=== PATIENT | female | born 1990 | race Caucasian/White ===

== ENCOUNTER 2018-04-20 04:00 | Observation (INO) | payer OTHER ==
--- NOTE | 2018-04-20 15:38 | PDGENHP ---
History and Physical History and Physical: Care: [facility] HPI: Claire Wei is a 28yo with IUP @37-0 weeks that presents to L&D with complaints of decreased movement since this morning. Upon arrival she states she is now feeling movement. She denies any contractions, LOF, VB. EDC: 05/11/18 which is based on LMP: 08/04/17 which is known and consistent with Ultrasound at 9 weeks. Her is complicated by: bicornuate uterus, prior c/s (breech), first trimester bleeding Review of Systems: Constitutional: Denies any fever, chills, or fatigue HEENT: denies any visual changes, difficulty swallowing, hearing loss Cardiovascular: Denies any chest pain, palpitations, leg swelling Respiratory: denies any cough, wheezing, or shortness of breathe GI: Denies any nausea, vomiting, diarrhea, constipation : denies any dysuria, urgency, frequency, vaginal bleeding Musculoskeletal: denies any muscle or bone pain Skin: denies any rashes Neuro: denies any headache, seizures, lightheadedness, dizziness, or loss of consciousness Psychiatric: denies any depression, anxiety, or SI/HI thoughts HISTORY: Previous OB history: primary c/s 2015 (breech, bicornuate uterus), EAB x1 (2013 ) Past medical history: HSV type 1 Past surgical history: right shoulder x2, oral surgery, c/s Social: Denies any alcohol, tobacco, or drug use. , Sanderson, son: October. Works in real estate Family history: PGM colon cancer, mother/MGM Factor V Medications: PNV, claritin, DHA Allergies (list reaction): NKDA LABS: Rh: A+ ABS: Neg Rubella: Immune HbsAg: NR HIV: NR VDRL: NR 1hr: 87 GC: Neg Chlamydia: Neg Pap: Normal GBS: negative BMI: (prepreg) 27 PHYSICAL EXAM: Constitutional: WN, A&Ox3 HEENT: normocephalic atraumatic, supple Skin: Warm, dry, intact Heart: RRR, no murmur Chest: CTA-B Abdomen: Soft, nontender, gravid SVE: deferred Extremities: no edema, negative homans sign Neuro: grossly normal Psych: normal affect assessment: FHT baseline 145 +accels, variable decel x1, moderate variability Contractions: toco none VINITA 10.6cm, Breech Assessment: 1) 27yo with IUP@ 37-0 wks 2) no evidence of labor 3) GBS negative 4) Cat 1 FHR tracing 5) VINITA 10.6cm 6) Breech presentation Plan: 1) D/c home at this time 2) PO hydrate 3) return to L&D tomorrow for scheduled ECV 4) FKC and Labor prec discussed Today's visit was approximately 45 min, of which >50% of visit 30 min, was spent face to face with pt on direct counseling/coordination of care.
== END 2018-04-20 15:30 | disposition home or self-care (01) ==
LOC: FLD 04:00
PROVIDERS: ADMIT Obstetrics & Gynecology; ATTEND Obstetrics & Gynecology
DX: O32.1XX0 Maternal care for breech presentation, not applicable or unspecified (principal); O34.03 Maternal care for unspecified congenital malformation of uterus, third trimester; O34.219 Maternal care for unspecified type scar from previous cesarean delivery; Q51.3 Bicornate uterus; Z87.59 Personal history of other complications of pregnancy, childbirth and the puerperium; Z3A.37 37 weeks gestation of pregnancy
CPT/HCPCS: 76818; G0378

== ENCOUNTER 2018-04-21 08:01 | Inpatient (IN) | payer OTHER ==
[2018-04-21] MEDS ORDERED: TERBUTALINE SULFATE 1 MG/ML VIAL IV ONE (08:11)
[2018-04-21] MEDS ORDERED: OLIVE OIL 118 ML BTL MISC ONE (08:11)
[2018-04-21 08:32] LABS: PLATELET COUNT 177 10^3/uL (150-400)
--- NOTE | 2018-04-21 09:26 | PREANESOB ---
Obstetric Pre-Anesthesia Info - General Info Proposed Procedure: CS NPO Start Time: 23:00 : 3 Para: 1 KARTIK: 05/11/18 Gestational Age: 37 week(s) and 1 day(s) - Labor Status Rupture of Membranes Date: 04/21/18 Section History: Repeat Indications for Current Section: Breech Anesthesia Allergies/Adverse Reactions: Allergy/AdvReac Type Severity Reaction Status Date / Time No Known Allergies Allergy Unverified 01/25/15 14:26 Home Medications: Medication Instructions Recorded 1 tab PO DAILY 03/15/15 Visit Medications: Discontinued Medications Generic Name Dose Route Start Last Admin Trade Name Freq PRN Reason Stop Dose Admin Marilla Oil 118 ml 04/21/18 08:11 Sweet Oil MISC 04/21/18 08:12 ONCE ONE Terbutaline Sulfate 0.25 mg 04/21/18 08:11 Brethine IV 04/21/18 08:12 ONCALL ONE - Anesthesia History Response to Local Anesthetics: Normal Anesthesia & Operative History: Other (Specify) (PONV) - Social History Substance Use/Abuse: ETOH - Vital Signs Height/Weight (Nursing): Height 167.64 cm Weight 75.75 kg - Focused Exam Neck exam: FROM Mallampati Score: Class 2 Mouth exam: normal dental/mouth exam Pulmonary: no respiratory distress Cardiovascular: regular rate and rhythym Labs: 04/21/18 08:15 Patient ABO/Rh A POSITIVE 04/21/18 08:15 - Plan Anesthetic Plan: SAB Consent Signed and on Chart: Yes Patient/Guardian Understands and Agrees to Plan: Yes
[2018-04-21] MEDS ORDERED: fentaNYL 100 MCG/2 ML INJ ONE (09:39)
[2018-04-21] MEDS ORDERED: morphINE PF 10 MG/10 ML INJ ONE (09:40)
[2018-04-21] MEDS ORDERED: LR 500 ML IV ONE (09:49)
[2018-04-21] MEDS ORDERED: ceFAZolin 2 GM/DEXTROSE 100 ML IV ONE (09:49)
[2018-04-21] MEDS ORDERED: CITRIC ACID/SODIUM CITRATE 30 ML UDCUP PO ONE (09:49)
--- NOTE | 2018-04-21 09:49 | PDGENHP ---
History and Physical - Chief Complaint SROM, 37w1d, breech - History of Present Illness Claire is a 27 yo at 37w1d by KARTIK of 05/11/18 who was scheduled for attempt at ECV this AM but when she presented to L&D reported that she thought her water had broke as she was getting ready this morning around 0630. Large gush, bloody show, new contractions since then, Amnisure positive. Baby is is known breech position, she has known bicornuate uterus with this in the right horn. Her first child was also a scheduled CS for breech following failed ECV. She last ate at 11pm. Otherwise uncomplicated . Labs: A positive Ab negative RPR NR Rubella immune Hep B neg HIV neg Standard panel neg VZV immune Parvo immune AFP neg Innatal Normal (gender unknown) Glucola 87 History Information - Allergies/Home Medication List Allergies/Adverse Reactions: No Known Allergies Allergy (Unverified 01/25/15 14:26) Home Medications: 1 tab PO DAILY 03/15/15 [Last Taken 03/14/15] I have personally reviewed and updated: family history, medical history, social history, surgical history Past Medical History: Bicornuate uterus - Surgical History Additional surgical history: PLTCS, R shoulder x 2, wisdom teeth - Family History Positive for: non-pertinent - Social History Smoking Status: Never smoked Review of Systems Review of Systems: ROS: 10pt was reviewed & negative except for what was stated in HPI & below Physical Exam Physical Exam: NAD, pleasant Belly soft between irregular ctx's longitudinal lie FHR 145bpm, mod diana, accels present, occasional variable decels - Cat 2. [place] - Irregular Lab Data & Imaging Review 04/21/18 08:15 WBC 7.52 10^3/uL (3.80-9.50) 04/21/18 08:15 RBC 4.33 10^6/uL (4.18-5.33) 04/21/18 08:15 Hgb 13.1 g/dL (12.6-16.3) 04/21/18 08:15 Hct 38.1 % (38.0-47.0) 04/21/18 08:15 MCV 88.0 fL (81.5-99.8) 04/21/18 08:15 MCH 30.3 pg (27.9-34.1) 04/21/18 08:15 MCHC 34.4 g/dL (32.4-36.7) 04/21/18 08:15 RDW 13.5 % (11.5-15.2) 04/21/18 08:15 Plt Count 177 10^3/uL (150-400) 04/21/18 08:15 MPV 9.3 fL (8.7-11.7) 04/21/18 08:15 Neut % (Auto) 69.8 % (39.3-74.2) 04/21/18 08:15 Lymph % (Auto) 19.4 % (15.0-45.0) 04/21/18 08:15 [place] % (Auto) 7.7 % (4.5-13.0) 04/21/18 08:15 Eos % (Auto) 1.1 % (0.6-7.6) 04/21/18 08:15 Baso % (Auto) 0.7 % (0.3-1.7) 04/21/18 08:15 Nucleat RBC Rel Count 0.0 % (0.0-0.2) 04/21/18 08:15 Absolute Neuts (auto) 5.25 10^3/uL (1.70-6.50) 04/21/18 08:15 Absolute Lymphs (auto) 1.46 10^3/uL (1.00-3.00) 04/21/18 08:15 Absolute Monos (auto) 0.58 10^3/uL (0.30-0.80) 04/21/18 08:15 Absolute Eos (auto) 0.08 10^3/uL (0.03-0.40) 04/21/18 08:15 Absolute Basos (auto) 0.05 10^3/uL (0.02-0.10) 04/21/18 08:15 Absolute Nucleated RBC 0.00 10^3/uL (0-0.01) 04/21/18 08:15 Immature Gran % 1.3 % (0.0-1.1) H 04/21/18 08:15 Immature Gran # 0.10 10^3/uL (0.00-0.10) 04/21/18 08:15 Membrane Rupture POSITIVE (NEGATIVE) H 04/21/18 08:50 Patient ABO/Rh A POSITIVE 04/21/18 08:15 Antibody Screen NEGATIVE 04/21/18 08:15 Assessment & Plan Assessment: 27 yo at 37w1d with SROM, breech. Will proceed to OR for RLTCS. RBA discussed, consents signed. We did have a discussion about possibility of still attempting ECV at this point , but I recommended against that as I think the chances of success are so low that we'd just be adding unnecessary risk for baby. Will discuss prophylactic nausea meds with anesthesia. ELIJAH
[2018-04-21] MEDS ORDERED: AMMONIA AROMATIC 1 EACH AMP IH ONE (10:22)
[2018-04-21] MEDS ORDERED: LIDOCAINE 1% 300 MG/30 ML SDV ONE (10:22)
[2018-04-21] MEDS ORDERED: TERBUTALINE SULFATE 1 MG/ML VIAL ONE (10:23)
[2018-04-21] MEDS ORDERED: OXYTOCIN 10 UNIT/ML VIAL ONE (10:23)
[2018-04-21] MEDS ORDERED: MISOPROSTOL 200 MCG TAB ONE (10:23)
[2018-04-21] MEDS: LR 1,000 ML IV SCH ×2 (10:33→22:01)
[2018-04-21] MEDS ORDERED: OXYTOCIN 100 UNITS/10 ML VIAL ONE (11:27)
[2018-04-21] MEDS ORDERED: HYDROmorphONE/DILAUDID 1 MG/ML INJ IVP PRN (11:52)
[2018-04-21] MEDS ORDERED: MEPERIDINE 25 MG/0.5 ML AMP IVP PRN (11:52)
[2018-04-21] MEDS ORDERED: PHENYLEPHRINE HCL 100 MCG/ML SYR IVP PRN (11:52)
[2018-04-21] MEDS ORDERED: OXYCODONE/APAP 5/325 TAB PO PRN (11:52)
[2018-04-21] MEDS ORDERED: NALOXONE HCL 0.4 MG/ML INJ IVP PRN ×2 (11:52)
[2018-04-21] MEDS ORDERED: HYDROCODONE/APAP 5/325 TAB PO PRN (11:52)
[2018-04-21] MEDS ORDERED: fentaNYL 100 MCG/2 ML INJ IVP PRN (11:52)
--- NOTE | 2018-04-21 12:27 | POSTOPPROG ---
Post Op Note Date of Operation: 04/21/18 Surgeon: Junito Gomez Labels Molder: JAIME Al Charlotte Wilkes, CNM Anesthesiologist: Jong Bermeo Anesthesia: Spinal Pre-op Diagnosis: SROM, breech, h/o prior section, bicornuate uterus Post-op Diagnosis: Same Procedure: RLTCS Findings: Irregular, bicornuate uterus, normal tubes and ovaries Inf/Abcess present in the surg proc area at time of surgery?: No EBL: 800cc Complications: None Specimen(s): Cord blood gasses not sent, Placenta not sent
--- NOTE | 2018-04-21 12:32 | SUROPNOTE ---
[facility] Operative Report - Surgery Date of Operation: 04/21/18 Surgeon: Junito Gomez Mold Inspector: JAIME Al Charlotte Wilkes, CNM Anesthesiologist: Jong Bermeo Anesthesia: Spinal Pre-op Diagnosis: SROM, breech, h/o prior section, bicornuate uterus Post-op Diagnosis: Same Procedure: RLTCS Findings: Irregular, bicornuate uterus, normal tubes and ovaries Inf/Abcess present in the surg proc area at time of surgery?: No EBL: 800cc Complications: None Specimen(s): Cord blood gasses not sent, Placenta not sent Technique: The patient was taken to the OR where spinal was placed and anesthesia found to be adequate. The patient was then positioned supine with a leftward tilt and a time-out was performed. She was given weight-based antibiotics prior to skin incision. The abdomen was prepped and draped in normal sterile fashion. A Pfannenstiel skin incision was made with the scalpel and carried down to the fascia. Her prior transverse scar was excised prior to that dissection. The fascia was incised in the midline and the incision extended bilaterally sharply with scissors. The fascia was dissected off of the underlying rectus muscles superiorly and inferiorly also sharply using scissors. The rectus were in the midline and the peritoneum identified and entered bluntly without issue. Minimal adhesions encountered as described in findings. The peritoneal incision was extended and the bladder blade was then placed. The vesicouterine junction was identified and a bladder flap created sharply and developed bluntly. A transverse incision was made with the scalpel in the lower uterine segment and extended with cephalad and caudad traction on the incision edges. The fetus was encountered breech with its back down and to me. The baby's hand first presented itself out of the hysterotomy and I gently reduced that. Identified the breech and easily elevated that out of the pelvis and delivered atraumatically, followed by the body shoulders and head using traditional breech maneuvers. Single nuchal cord reduced easily. The nose and mouth were bulb suctioned. We did wait for 60 seconds before clamping and cutting the cord and then the was handed to pediatric staff. Cord blood gases were not sent and the placenta was not sent to pathology. The uterus was not exteriorized, an Kiran O retractor was placed and exposure excellent. The uterus was carefully wiped of all debris. The uterus was closed in two layers - the first layer was running with 180 0-vloc and the second a vertical imbricating layer using 0-vicryl. The gutters were cleared of all clots. The uterine incision was re-inspected and found to be hemostatic after placement of additional figure of eight sutures of 3-0 vicryl. The uterus was then returned to the abdomen. The fascia was elevated and the rectus muscles and subcutaneous tissues were found to be hemostatic. The fascia was closed with a running 0-Vicryl - single suture. The subcutaneous tissues were irrigated and hemostasis obtained. The subcutaneous space was closed with interrupted sutures of 2-0 vicryl. The skin was closed with 4-0 vloc undyed and then covered with Medipore dressing. The patient tolerated the procedure and was taken to recovery in stable condition. Lap, needle, sponge, and instrument count were announced as correct times two. I was present and scrubbed for the entire case.
--- NOTE | 2018-04-21 12:39 | OBDEL ---
Info Type: Repeat Presentation at Delivery: Breech L&D Analgesia/Anesthesia Type: Spinal GBS+: No Intrapartum Medications: Generic Name Dose Route Start Last Admin Trade Name Freq PRN Reason Stop Dose Admin Lactated Ringer's 1,000 mls @ 125 mls/hr 04/21/18 10:00 04/21/18 10:33 Lr IV 04/22/18 09:59 1,000 mls CONT AURELIA Administration Discontinued Medications Generic Name Dose Route Start Last Admin Trade Name Freq PRN Reason Stop Dose Admin Citric Acid/Sodium Citrate 30 ml 04/21/18 09:49 04/21/18 10:30 Bicitra PO 04/21/18 09:50 30 ml ONCALL ONE Administration Indications for Delivery: SROM Vaginal Delivery - Labor and Delivery Onset of Contractions Date: 04/21/18 Onset of Contractions Time: 07:00 Rupture of Membranes Date: 04/21/18 Operative Report - Delivery Pre-op Diagnoses: SROM, breech, bicornuate uterus Post-op Diagnoses: Same History of Prior Section: Yes Number of Prior Sections: 1 Nulliparous Prior to Delivery: No Indications for Prior Section: Breech Indications for Current Section: Breech Procedure: Unscheduled Surgeon: Junito Gomez Box Repairer: Brittney Velazco (Enriqueta James) Anesthesiologist: Jong Bermeo Complications: Nucal Cord (x1) Findings: Irregular uterine shape/contour, bicornuate uterus, vigorous baby girl in isiah breech position. Normal placenta, normal tubes and ovaries. EBL: 800 Cord Gases: Not sent [place] Data KARTIK: 05/11/18 Gestational Age: 37 week(s) and 1 day(s) ICD10 Worksheet Patient Problems: Problems Problem Status Onset Breech delivery Acute S/P primary low transverse Acute
[2018-04-21] MEDS ORDERED: SIMETHICONE 80 MG TAB CHEW PO PRN (12:42)
[2018-04-21] MEDS ORDERED: BISACODYL 10 MG SUPP PR PRN (12:42)
[2018-04-21] MEDS ORDERED: MAGNESIUM HYDROXIDE 30 ML UDCUP PO PRN (12:42)
[2018-04-21] MEDS ORDERED: POLYETHYLENE GLYCOL 3350 17 GM PKT PO PRN (12:42)
[2018-04-21] MEDS ORDERED: LACTULOSE 20 GM/30 ML UDCUP PO PRN (12:42)
[2018-04-21] MEDS ORDERED: IBUPROFEN 600 MG TAB PO SCH (12:45)
[2018-04-21] MEDS: ONDANSETRON 4 MG/2 ML VIAL IVP PRN ×2 (12:47→17:03)
[2018-04-21] MEDS: PROMETHAZINE HCL 25 MG/ML INJ IVP PRN ×2 (13:00→22:02)
--- NOTE | 2018-04-21 14:27 | POSTANESTH ---
Post Anesthetic Evaluation Cardiovascular Status: Normal, Stable, Similar to Pre-Op Cond Respiratory Status: Normal, Stable, Similar to Pre-op Cond. Level of Consciousness/Mental Status: Can Participate in Eval, Alert and Oriented Pain Control: Adequate, Prn Tx Ordered Nausea/Vomiting Control: Inadeq, Add Tx Reqired Complications Possibly Related to Anesthesia: None Noted
[2018-04-21] MEDS: KETOROLAC 30 MG/1 ML SDV IVP SCH ×2 (15:25→21:54)
[2018-04-21] MEDS: ACETAMINOPHEN 325 MG TAB PO SCH (15:25)
[2018-04-22] MEDS: ACETAMINOPHEN 325 MG TAB PO SCH ×6 (02:41→23:51)
[2018-04-22] MEDS: KETOROLAC 30 MG/1 ML SDV IVP SCH ×3 (02:43→15:53)
[2018-04-22] MEDS: SENNOSIDES/DOCUSATE SODIUM TAB PO SCH ×3 (02:45→20:23)
[2018-04-22] MEDS: oxyCODONE IR 5 MG TAB PO PRN ×2 (05:48→23:51)
[2018-04-22] MEDS ORDERED: KETOROLAC 30 MG/1 ML SDV IVP SCH (10:00)
--- NOTE | 2018-04-22 11:48 | OBPP ---
Progress Note Assessment/Plan: Assessment: 27 y/o POD #1 s/p rpt LTCS secondary to breech and SROM @ 37 weeks Plan: Routine POC. support. Bowel protocol and start Po Iron. 04/22/18 11:29 Subjective/ Course: 04/22/18 11:27 Pt is doing well this am. She has good pain control with PO Oxy and Tylenol. She is ambulating and voiding without difficulty and baby is doing well, nursing well. She denies nipple pain or issues. Objective: 04/22/18 06:10 Patient ABO/Rh A POSITIVE 04/21/18 08:15 Temp Pulse Resp BP Pulse Ox 37.1 C 75 16 88/48 L 95 04/22/18 08:00 04/22/18 08:00 04/22/18 08:00 04/22/18 08:00 04/22/18 08:00 Uterine Position/Fundal Height: Umbilicus -2 Uterine Tone: Firm Physical Exam - Physical Exam General Appearance: alert, no apparent distress Neck: non-tender, full range of motion, supple Respiratory: chest non-tender, lungs clear, normal breath sounds Cardiac/Chest: regular rate, rhythm Abdomen: normal bowel sounds, incision (c/d/i) Extremities: swelling (no), Brandy's sign (neg)
--- NOTE | 2018-04-22 12:37 | POSTANESTH ---
Post Anesthetic Evaluation Cardiovascular Status: Normal, Stable Respiratory Status: Normal, Stable Level of Consciousness/Mental Status: Can Participate in Eval, Alert and Oriented Pain Control: Adequate, Prn Tx Ordered Nausea/Vomiting Control: Adequate, Prn Tx Ordered Complications Possibly Related to Anesthesia: None Noted (pt doing well no compliants, pain well controlled. Pleased with the C/S)
[2018-04-22] MEDS: IBUPROFEN 600 MG TAB PO SCH ×2 (16:03→21:53)
[2018-04-22] MEDS: FERRO-SEQUELS 65 MG TAB.ER PO SCH (20:23)
[2018-04-23] MEDS: IBUPROFEN 600 MG TAB PO SCH ×4 (04:03→22:34)
[2018-04-23] MEDS: ACETAMINOPHEN 325 MG TAB PO SCH ×3 (05:59→21:08)
[2018-04-23] MEDS: SENNOSIDES/DOCUSATE SODIUM TAB PO SCH ×2 (09:58→21:07)
[2018-04-23] MEDS: FERRO-SEQUELS 65 MG TAB.ER PO SCH ×2 (09:59→21:07)
--- NOTE | 2018-04-23 16:04 | OBPP ---
Progress Note Assessment/Plan: Assessment: 1) s/p PCS secondary to breech and SROM POD # 2 - pt is stable 2) Anemia - pt is asymptomatic Plan: Continue routine post-op care Cont iron, colace Encourage ambulation Plan for d/c home in am 04/2404/23/18 16:00 Subjective/ Course: 04/22/18 11:27 Pt is doing well this am. She has good pain control with PO Oxy and Tylenol. She is ambulating and voiding without difficulty and baby is doing well, nursing well. She denies nipple pain or issues. 04/23/18 16:01 Pt seen and examined. Doing well, with no complaints. She is crying, but states it is not related to baby or pp. Declined talking about it. Pain is well controlled with po meds. Pt is OOB, amarilis regular diet, voiding without difficulty and had BM x 1. Minimal lochia. BF is going well. Would like to go home tomorrow 04/24. Objective: 04/22/18 06:10 Patient ABO/Rh A POSITIVE 04/21/18 08:15 Temp Pulse Resp BP Pulse Ox 37.2 C 72 16 99/67 L 93 04/23/18 08:00 04/23/18 08:00 04/23/18 08:00 04/23/18 08:00 04/23/18 08:00 Uterine Position/Fundal Height: Umbilicus -1 Uterine Tone: Firm Physical Exam - Physical Exam General Appearance: WD/WN, alert, no apparent distress Respiratory: lungs clear, normal breath sounds Cardiac/Chest: regular rate, rhythm Abdomen: normal bowel sounds, soft, flatus (+), incision (C/D/I; well approximated; some ecchymosis noted sup and inf) Extremities: non-tender, normal inspection Skin: normal color, warm/dry Neuro/Psych: alert, normal mood/affect, oriented x 3
[2018-04-24] MEDS: IBUPROFEN 600 MG TAB PO SCH ×3 (04:55→11:54)
[2018-04-24] MEDS: ACETAMINOPHEN 325 MG TAB PO SCH ×3 (04:55→11:54)
[2018-04-24 09:31] VITALS: BP 107/65
[2018-04-24] MEDS: FERRO-SEQUELS 65 MG TAB.ER PO SCH (11:53)
[2018-04-24] MEDS: SENNOSIDES/DOCUSATE SODIUM TAB PO SCH (11:53)
--- NOTE | 2018-04-24 12:20 | OBPP ---
Progress Note Assessment/Plan: Assessment: POD 3 s/p RCS for ROM, labor, breech Plan: D/C home, doing great 04/24/18 12:18 Subjective/ Course: 04/22/18 11:27 Pt is doing well this am. She has good pain control with PO Oxy and Tylenol. She is ambulating and voiding without difficulty and baby is doing well, nursing well. She denies nipple pain or issues. 04/23/18 16:01 Pt seen and examined. Doing well, with no complaints. She is crying, but states it is not related to baby or pp. Declined talking about it. Pain is well controlled with po meds. Pt is OOB, amarilis regular diet, voiding without difficulty and had BM x 1. Minimal lochia. BF is going well. Would like to go home tomorrow 04/24. 04/24/18 12:19 Pt seen this am approx 9:30 - doing great. pain well controlled with ibu/tyl, only used one narc on first day. amb well. working on BF and baby latching well. urinating fine. bld is light. ready for d/c Objective: 04/22/18 06:10 Patient ABO/Rh A POSITIVE 04/21/18 08:15 Temp Pulse Resp BP Pulse Ox 36.6 C 72 16 107/65 96 04/24/18 08:00 04/24/18 08:00 04/24/18 08:00 04/24/18 08:00 04/24/18 08:00 Uterine Position/Fundal Height: Umbilicus -2 Uterine Tone: Firm Physical Exam - Physical Exam Abdomen: non-tender (approp post op tenderness), soft, incision (CDI) Extremities: non-tender, pedal edema (mild) Skin: normal color, warm/dry Neuro/Psych: alert, normal mood/affect
--- NOTE | 2018-04-24 12:27 | OBGCSDC ---
General Delivery Information - General Info : 3 Para: 2 Abortions: 0 Type: Repeat L&D Analgesia/Anesthesia Type: Spinal Admission Date: 04/21/18 Labs: Patient ABO/Rh A POSITIVE 04/21/18 08:15 Hct 30.8 % (38.0-47.0) L 04/22/18 06:10 - Hospital Course : 04/22/18 11:27 Pt is doing well this am. She has good pain control with PO Oxy and Tylenol. She is ambulating and voiding without difficulty and baby is doing well, nursing well. She denies nipple pain or issues. 04/23/18 16:01 Pt seen and examined. Doing well, with no complaints. She is crying, but states it is not related to baby or pp. Declined talking about it. Pain is well controlled with po meds. Pt is OOB, amarilis regular diet, voiding without difficulty and had BM x 1. Minimal lochia. BF is going well. Would like to go home tomorrow 04/24. 04/24/18 12:19 Pt seen this am approx 9:30 - doing great. pain well controlled with ibu/tyl, only used one narc on first day. amb well. working on BF and baby latching well. urinating fine. bld is light. ready for d/c - Delivery Providers Surgeon: Junito Gomez Cloud Engineer: Brittney Velazco (Enriqueta James) Anesthesiologist: Jong Bermeo - Delivery Number of Prior Sections: 1 Indications for Current Section: Breech Surgical Procedures: Unscheduled Intra-op Complications: Nucal Cord (x1) EBL: 800 Data KARTIK: 05/11/18 Gestational Age: 37 week(s) and 4 day(s) [place] Delivery Date: 04/21/18 Delivery Time: 11:33 Sex of Infant: Female [place] Weight (gm): 2792 kg Score (1 Min): 8 Score (5 Min): 9 Discharge Information - Discharge Information Condition: Good Instruction/Follow Up: See Instruction Sheet, Two Weeks (with ELIJAH and therapist) , Six Weeks (with JM)
== END 2018-04-24 13:00 | disposition home or self-care (01) | DRG 788 ==
LOC: FOBOP 08:01 → FLD 08:48 → FOB 14:46
PROVIDERS: ADMIT Obstetrics & Gynecology; ATTEND Obstetrics & Gynecology
PROC: 10D00Z1 Extraction of Products of Conception, Low, Open Approach (ICD-10-PCS; principal; 2018-04-21)
DX: O32.1XX0 Maternal care for breech presentation, not applicable or unspecified (principal); Z37.0 Single live birth; Z3A.37 37 weeks gestation of pregnancy; O34.219 Maternal care for unspecified type scar from previous cesarean delivery; O34.593 Maternal care for other abnormalities of gravid uterus, third trimester; O69.82X0 Labor and delivery complicated by other cord entanglement, without compression, not applicable or unspecified
CPT/HCPCS: J0690; J1885; J2274; J2405; J2550; J2590; J3010; J3105